=== PATIENT | female | born 1980 | race Two or more races ===

== ENCOUNTER 2017-08-29 11:56 | Emergency (ER) | payer SELFPAY ==
[~2017-08-29] VITALS: Ht 170.2 cm; Wt 73.5 kg
[2017-08-29] MEDS ORDERED: TRAMADOL HCL150 MG ORAL (12:10)
[2017-08-29] MEDS ORDERED: PRILOSEC10 M1 ORAL (12:10)
[2017-08-29] MEDS ORDERED: NORCO 5-325 TA1 EAC1 ORAL (12:10)
[2017-08-29 12:11] VITALS: BP 96/51
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
[2017-08-29] MEDS ORDERED: ROBAXIN-750750 MG PO (14:14)
[2017-08-29] MEDS ORDERED: Methocarbamol 500mg tab ORAL ONE (14:15)
[2017-08-29 14:25] VITALS: BP 96/51
== END 2017-08-29 15:30 | disposition home or self-care (01) ==
LOC: EMR 15:17
DX: M54.32 Sciatica, left side (principal); G89.29 Other chronic pain; Z88.6 Allergy status to analgesic agent
CPT/HCPCS: 99283